=== PATIENT | male | born 1995 | race Native Hawaiian/Other Pacific Islander ===

== ENCOUNTER 2018-09-20 09:47 | Emergency (ER) | payer OTHER ==
[2018-09-20 09:51] VITALS: BMI 31.2
[2018-09-20 09:59] VITALS: TEMP 97.8
[2018-09-20] MEDS ORDERED: Lidocaine 109 MG in Sodium Chloride 0.9% 100 ML IV STA (10:07)
[2018-09-20] MEDS ORDERED: Sodium Chloride 0.9% 1,000 ML IV STA (10:07)
--- NOTE | 2018-09-20 10:07 | C.PDOC ---
History Of Present Illness 22 y/o male pt presents to the ED with c/o RLQ abdominal pain that radiates to the left lower back and groin. Pt reports this has never happened before and denies any previous abdominal surgeries. Pt denies hematuria, dysuria, nausea and vomiting. Time Seen by Provider: 09/20/18 10:02 Chief Complaint (Nursing): Abdominal Pain History Per: Patient History/Exam Limitations: no limitations Onset/Duration Of Symptoms: Days Current Symptoms Are (Timing): Still Present Past Medical History Reviewed: Historical Data, Nursing Documentation, Vital Signs Vital Signs: Last Vital Signs Temp 97.8 F 09/20/18 09:52 Pulse 74 09/20/18 09:52 Resp 18 09/20/18 09:52 BP 141/95 H 09/20/18 09:52 Pulse Ox 99 09/20/18 09:52 Family History: States: No Known Family Hx - Social History Hx Alcohol Use: No Hx Substance Use: No - Immunization History Hx Tetanus Toxoid Vaccination: No Hx Influenza Vaccination: No Hx Pneumococcal Vaccination: No Review Of Systems Except As Marked, All Systems Reviewed And Found Negative. Gastrointestinal: Positive for: Abdominal Pain (RLQ ). Negative for: Nausea, Vomiting Genitourinary: Negative for: Dysuria, Hematuria Musculoskeletal: Positive for: Back Pain (radiated from RLQ abdominal pain ), Other (left-sided groin pain radiated from RLQ abdominal pain) Physical Exam - Physical Exam Appears: Non-toxic, In Acute Distress Skin: Normal Color, Warm, Dry Head: Normacephalic Eye(s): bilateral: Normal Inspection, EOMI Nose: Normal Oral Mucosa: Moist Throat: Normal Chest: Symmetrical, No Deformity Cardiovascular: Rhythm Regular Respiratory: Normal Breath Sounds, Other (NARD) Gastrointestinal/Abdominal: Soft, No Tenderness, No Distention, No Guarding, No Rebound Extremity: Normal ROM (x4) Neurological/Psych: Oriented x3, Normal Speech Gait: Steady ED Course And Treatment - Laboratory Results Result Diagrams: 09/20/18 10:26 09/20/18 10:26 O2 Sat by Pulse Oximetry: 99 (RA) Pulse Ox Interpretation: Normal - CT Scan/US CT abd&pelvis Other Rad Studies (CT/US): Read By Radiologist, Radiology Report Reviewed CT/US Interpretation: Accession No. : [id number]. Patient Name / ID : NEELA BANEGAS / [id number]. Exam Date : 09/20/2018 10:44:43 ( Approved ). Study Comment : Sex / Age : M / 22Y. Creator : Alcides Davenport MD. Dictator : Alcides Davenport MD. Key Punch Operator : [employer] Reader : Alcides Davenport MD. Approver2 : Report Date : 09/20/2018 11:05:08. My Comment : . Date of service: 09/20/2018. PROCEDURE: CT Abdomen and Pelvis without intravenous contrast. HISTORY: abd pain R FLANK/LQ. COMPARISON: None. TECHNIQUE: Helical CT of the abdomen and pelvis was performed without oral or intravenous contrast as per referring physician request. Coronal and sagittal reformats were generated. Contrast dose: None. Radiation dose: Total exam DLP = 385.83 mGy-cm. This CT exam was performed using one or more of the following dose reduction techniques: Automated exposure control, adjustment of the mA and/or kV according to patient size, and/or use of iterative reconstruction technique. FINDINGS: LOWER THORAX: Unremarkable. LIVER: Unremarkable. No gross lesion or ductal dilatation. GALLBLADDER AND BILE DUCTS: Unremarkable. PANCREAS: Unremarkable. No gross lesion or ductal dilatation. SPLEEN: Unremarkable. ADRENALS: Unremarkable. No mass. KIDNEYS AND URETERS: Mild right hydroureteronephrosis caused by a 4.2 x 3.7 mm calculus obstructing the proximal to mid right ureter at the inferior L3 vertebral body level. The ureter distal to this calculus is normal in caliber with urinary bladder decompressed and unremarkable appearing. No left-sided obstructive uropathy. There are least 2 punctate intrarenal calculi retained at the right kidney with 3 intrarenal calculi identified at the left kidney. The largest at the left kid melani measures 3 mm at the upper pole. Subtle right perinephric reaction is identified with none on the left. VASCULATURE: Unremarkable. No aortic aneurysm. No aortic atherosclerotic calcification or mural plaque present. BOWEL: Evaluation of the gastrointestinal tract is limited due to the lack of oral contrast administration. The stomach is mildly distended with fluid and retained air without gross mural thickening appreciable. No large or small bowel obstruction is identified. Dwzl-ig-klkfrnzo retained fecal material scattered throughout the large bowel. APPENDIX: Unremarkable. Normal appendix. PERITONEUM: Unremarkable. No free fluid. No free air. LYMPH NODES: Unremarkable. No enlarged lymph nodes. BLADDER: See renal section above. REPRODUCTIVE: Unremarkable. BONES: No acute fracture. OTHER FINDINGS: None. IMPRESSION: Findings compatible with 4.2 mm urolith obstruction of proximal to mid right ureter causing mild right hydroureteronephrosis. Small bilateral in trarenal calculi are retained bilaterally with no left-sided obstructive uropathy evident. Urinary bladder is decompressed. Progress Note: Impression: RLQ abdominal pain radiating to lower back and left- sided groin pain. Plans: -- CT abd&pelvis. -- chem labs. -- blood work. -- flomax. -- IV fluids. -- lidocaine. -- toradol. -- tylenol. -- UA Reevaluation Time: 11:20 Reassessment Condition: Improved (ASYMPT) Disposition Counseled Patient/Family Regarding: Studies Performed, Diagnosis, Need For Followup, Rx Given - Disposition Referrals: [facility] [Outside] [facility] [Outside] Disposition: HOME/ ROUTINE Disposition Time: 11:23 Condition: IMPROVED Prescriptions: Ibuprofen [Motrin] 600 mg PO Q6 #30 tab Ondansetron [Zofran Odt] 4 mg PO TID PRN #9 odt PRN Reason: Nausea/Vomiting Tamsulosin [Flomax] 0.4 mg PO DAILY #14 cap Instructions: Kidney Stones (DC) Forms: [employer] (Nepali) - Clinical Impression Clinical Impression: Ureterolithiasis - Scribe Statement The provider has reviewed the documentation as recorded by the Fritz Hernandez Do Provider Attestation: All medical record entries made by the Debbieibe were at my direction and personally dictated by me. I have reviewed the chart and agree that the record accurately reflects my personal performance of the history, physical exam, medical decision making, and the department course for this patient. I have also personally directed, reviewed, and agree with the discharge instructions and disposition.
[2018-09-20 10:32] LABS: BASO % 0.6 % (0.0-2.0); EOS # 0.2 K/uL (0.0-0.7); EOS % 2.5 % (0.0-4.0); HEMOGLOBIN 14.5 g/dL (12.0-18.0); LYMPH # 2.8 K/uL (1.0-4.3); LYMPH % 37.5 % (20.0-40.0); MEAN CELL VOLUME 86.2 fL (80.0-94.0); MEAN CORPUSCULAR HEMOGLOBIN 29.5 pg (27.0-31.0); MEAN CORPUSCULAR HGB CONC 34.3 g/dL (33.0-37.0); MEAN PLATELET VOLUME 9.2 fL (7.2-11.7); MONO # 0.6 K/uL (0.0-0.8); MONO % 8.2 % (0.0-10.0); NEUT # 3.8 K/uL (1.8-7.0); NEUT % 51.2 % (50.0-75.0); RBC 4.91 Mil/uL (4.40-5.90); RED CELL DISTRIBUTION WIDTH 12.7 % (11.5-14.5); WHITE BLOOD COUNT 7.4 K/uL (4.8-10.8)
[2018-09-20 10:36] LABS: SQUAMOUS EPITHIAL < 1 /hpf (0-5); URINE BACTERIA RARE (<OCC); URINE BILIRUBIN NEGATIVE (NEGATIVE); URINE BLOOD 3+ (NEGATIVE); URINE CLARITY Clear (Clear); URINE COLOR Yellow (YELLOW); URINE GLUCOSE (UA) NORMAL (Normal); URINE LEUKOCYTE ESTERASE NEG Leu/uL (Negative); URINE PROTEIN NEGATIVE (NEGATIVE); URINE UROBILINOGEN NORMAL mg/dL (0.2-1.0)
[2018-09-20] MEDS ORDERED: Lidocaine 109 MG in Sodium Chloride 0.9% 100 ML IV ONE (10:45)
--- NOTE | 2018-09-20 11:09 | CT ---
Date of service: 09/20/2018 PROCEDURE: CT Abdomen and Pelvis without intravenous contrast HISTORY: abd pain R FLANK/LQ COMPARISON: None. TECHNIQUE: Helical CT of the abdomen and pelvis was performed without oral or intravenous contrast as per referring physician request. Coronal and sagittal reformats were generated. Contrast dose: None Radiation dose: Total exam DLP = 385.83 mGy-cm. This CT exam was performed using one or more of the following dose reduction techniques: Automated exposure control, adjustment of the mA and/or kV according to patient size, and/or use of iterative reconstruction technique. FINDINGS: LOWER THORAX: Unremarkable. LIVER: Unremarkable. No gross lesion or ductal dilatation. GALLBLADDER AND BILE DUCTS: Unremarkable. PANCREAS: Unremarkable. No gross lesion or ductal dilatation. SPLEEN: Unremarkable. ADRENALS: Unremarkable. No mass. KIDNEYS AND URETERS: Mild right hydroureteronephrosis caused by a 4.2 x 3.7 mm calculus obstructing the proximal to mid right ureter at the inferior L3 vertebral body level. The ureter distal to this calculus is normal in caliber with urinary bladder decompressed and unremarkable appearing. No left-sided obstructive uropathy. There are least 2 punctate intrarenal calculi retained at the right kidney with 3 intrarenal calculi identified at the left kidney. The largest at the left kidney measures 3 mm at the upper pole. Subtle right perinephric reaction is identified with none on the left. VASCULATURE: Unremarkable. No aortic aneurysm. No aortic atherosclerotic calcification or mural plaque present. BOWEL: Evaluation of the gastrointestinal tract is limited due to the lack of oral contrast administration. The stomach is mildly distended with fluid and retained air without gross mural thickening appreciable. No large or small bowel obstruction is identified. Hdni-xz-mcprvais retained fecal material scattered throughout the large bowel. APPENDIX: Unremarkable. Normal appendix. PERITONEUM: Unremarkable. No free fluid. No free air. LYMPH NODES: Unremarkable. No enlarged lymph nodes. BLADDER: See renal section above. REPRODUCTIVE: Unremarkable. BONES: No acute fracture. OTHER FINDINGS: None. IMPRESSION: Findings compatible with 4.2 mm urolith obstruction of proximal to mid right ureter causing mild right hydroureteronephrosis. Small bilateral intrarenal calculi are retained bilaterally with no left-sided obstructive uropathy evident. Urinary bladder is decompressed.
[2018-09-20 11:12] LABS: ALB/GLOB RATIO 1.4 (1.0-2.1); ALBUMIN 4.5 g/dL (3.5-5.0); ALT/SGPT 32 U/L (21-72); AST/SGOT 27 U/L (17-59); BLOOD UREA NITROGEN 12 mg/dL (9-20); CALCIUM 9.3 mg/dl (8.6-10.4); GFR NON-AFRICAN AMERICAN > 60; LIPASE 196 U/L (23-300)
[2018-09-20 11:32] VITALS: BP 132/84; PULSE 78; RESP 16; O2SAT 98
== END 2018-09-20 11:32 | disposition home or self-care (01) ==
LOC: C.ER 09:47
DX: N13.2 Hydronephrosis with renal and ureteral calculous obstruction (principal)
CPT/HCPCS: 74176; 80053; 81001; 83690; 85025; 96361; 96374; 99283; J1885; J7030